=== PATIENT | female | born 1985 | race African-American/Black ===

== ENCOUNTER 2016-03-12 12:38 | Emergency (ER) | payer MEDICAID, OTHER ==
[~2016-03-12 12:38] MED LIST: CHLO.12%30 SSP; PREN0.01 PO
[2016-03-12 13:44] LABS: AUTOMATED NEUTROPHIL # 7.4 TH/MM3 (1.8-7.7); BASOPHIL # 0.1 TH/MM3 (0-0.2); BASOPHIL % 1.4 % (0.0-2.0); EOSINOPHIL # 0.3 TH/MM3 (0-0.4); EOSINOPHIL % 2.4 % (0.0-4.0); HEMO FLAGS DIFF FINAL; LYMPH % 15.6 % (9.0-44.0); LYMPHOCYTE # 1.6 TH/MM3 (1.0-4.8); MEAN CELL VOLUME 88.9 FL (80.0-100.0); MEAN CORPUSCULAR HEMOGLOBIN 31.2 PG (27.0-34.0); MEAN CORPUSCULAR HGB CONC 35.1 % (32.0-36.0); NEUT % 71.6 % (16.0-70.0); PLATELET COUNT 234 TH/MM3 (150-450); RED CELL DISTRIBUTION WIDTH 13.4 % (11.6-17.2); WHITE BLOOD COUNT 10.3 TH/MM3 (4.0-11.0)
[2016-03-12 13:45] VITALS: RESP 18
[2016-03-12 13:56] LABS: BACTERIA, URINE MANY /hpf; BLOOD, URINE NEG (NEG); COMMENT (UR) CULTURE INDICATED; CULTURE IF INDICATED CULTURE INDICATED; GLUCOSE,URINE NEG (NEG); KETONE, URINE NEG (NEG); MUCUS URINE FEW /lpf (OCC); NITRITE,URINE NEG (NEG); SQUAMOUS EPITHELIAL CELL URINE 50 /hpf (0-5); TRANSITIONAL EPI CELLS, URINE 1 /hpf; URINE COLOR YELLOW (YELLW/STRAW)
[2016-03-12 13:57] LABS: ALT (GPT) 19 U/L (10-53); ANION GAP 6 MEQ/L (5-15); AST (GOT) 9 U/L (15-37); BICARBONATE 23.7 MEQ/L (21.0-32.0); BLOOD UREA NITROGEN 5 MG/DL (7-18); CHLORIDE 112 MEQ/L (98-107); GLOMERULAR FILTRATION RATE 230 ML/MIN (>89); POTASSIUM 3.8 MEQ/L (3.5-5.1); SODIUM (NA) 142 MEQ/L (136-145); URIC ACID 2.9 MG/DL (2.6-6.0)
[2016-03-12 13:59] LABS: ALKALINE PHOSPHATASE 89 U/L (45-117); TOTAL BILIRUBIN ADULT 0.1 MG/DL (0.2-1.0)
[2016-03-12 14:01] VITALS: BP 110/71; PULSE 79
[2016-03-12 14:04] VITALS: RESP 18
[2016-03-12 14:12] LABS: AMPHETAMINE, URINE NEG (NEG); BARBITURATES, URINE NEG (NEG); COCAINE, URINE NEG (NEG)
[2016-03-12] MEDS ORDERED: SODIUM CHLOR 0.9% 1000 ML INJ 1,000 ML IV ONE (14:15)
[2016-03-12] MEDS ORDERED: cefTRIAXone INJ 2,000 MG in SODIUM CHLORIDE 0.9% INJ 100 ML IV ONE (14:15)
--- NOTE | 2016-03-12 14:17 | PD ---
HPI Chief Complaint Headaches, abdominal pain Date Seen: Mar 12, 2016 Time Seen: 13:50 Travel History International Travel<30 Days: No Contact w/Intl Traveler<30Days: No Known Affected Area: No History of Present Illness HPI 30-year-old 012 at 31 weeks and 5 days of gestation, EDC 05/09/16, patient presents to labor and delivery complaining of headaches, vaginal discharge and abdominal pain patient has no care at this point. She denies cramping, contractions, leakage of fluids, vaginal bleeding. She reports presence of movements. Amnisure test is negative. Patient has no care and is unassigned. course is significant for chronic hypertension, patient denies blurry vision, visual disturbances and epigastric pain. Para: 2 : 4 Miscarriage: 1 : 0 History Past Medical History Narrative Medical Chronic hypertension Obstetric History Obstetric History Spontaneous vaginal delivery 2, spontaneous times one. Past Surgical History Narrative Surgical Dilatation and curettage due to spontaneous Family History Narrative Family History Unremarkable Social History Alcohol Use: No Tobacco Use: Yes (patient smokes couple of cigarettes a day) Substance Abuse: No Allergies-Medications (Allergen,Severity, Reaction): Coded Allergies: No Known Allergies (Verified , 03/12/16) Home Meds Discontinued Scripts Peridex Oral R0.12 % 0.12 % Sol15 Ml SSP BID 14 Days Prov:Cindy Torres 10/06/15 Vitamins 1 Tab PO DAILY #30 TAB Prov:Varsha Levy MD 09/13/15 Review of Systems Except as stated in HPI: all other systems reviewed are Neg HENT: Headaches Cardiovascular: Other (hypertension) Gastrointestinal: Abdominal Pain Genitourinary: Frequency, Dysuria Physical Exam Narrative GENERAL: Well-nourished, well-developed patient. SKIN: Warm and dry. HEAD: Normocephalic and atraumatic. EYES: No scleral icterus. No injection or drainage. ENT: No nasal drainage noted. Mucous membranes pink. Airway patent. NECK: Supple, trachea midline. No JVD. CARDIOVASCULAR: Regular rate and rhythm without murmurs, gallops, or rubs. RESPIRATORY: Breath sounds equal bilaterally. No accessory muscle use. BREASTS: Bilateral exam showed no masses , no retractions, no nipple discharge. ABDOMEN/GI: Abdomen soft, gravid, non-tender, bowel sounds present, no rebound, no guarding Gravid to 32 weeks size Fundal Height: 32 cm GENITOURINARY: External Genitalia: intact and normal in appearance BUS glands: Normal Cervix: Close, long, posterior Dilatation: Close Effacement: 20% Station: -3 Presentation: Cephalic Membranes: Intact Uterine Contractions: None FHT's: Category: one Baseline: 130s Reactive: Yes Variability: Moderate Decels: None EXTREMITIES: No cyanosis or edema. BACK: Nontender without obvious deformity. No CVA tenderness. NEUROLOGICAL: Awake and alert. Motor and sensory grossly within normal limits. Five out of 5 muscle strength in all muscle groups. Normal speech. Data Data Vital Signs Reviewed: Yes Orders Vital Signs (Adult) [id number] AWAKE (03/12/16 13:21) ^ Heart (03/12/16 13:21) Activity Oob Ad Nessa (03/12/16 13:21) Complete Blood Count With Diff (03/12/16 13:21) Uric Acid (03/12/16 13:21) Urinalysis - C+S If Indicated (03/12/16 13:21) Ob/Psych Drug Screen, Urine (03/12/16 13:21) Comprehensive Metabolic Panel (03/12/16 13:21) Protein Creat Ratio, Random Ur (03/12/16 13:21) Rubella Immune Status (03/12/16 13:24) Hepatitis Profile (03/12/16 13:24) Rapid Plasma Regin (Rpr) W Ttr (03/12/16 13:24) Type And Screen (03/12/16 13:24) Special Serology (03/12/16 13:24) Us Ob Pelvis >14 Wks Fetus (03/12/16 ) Urine Culture (03/12/16 12:50) Sodium Chlor 0.9% 1000 Ml Inj (Ns 1000 M (03/12/16 14:15) Ceftriaxone Inj (Rocephin Inj) (03/12/16 14:15) Labs Laboratory Tests Test 03/12/16 03/12/16 12:50 13:25 Urine Color YELLOW Urine Turbidity HAZY Urine pH 7.0 Urine Specific [place] 1.015 Urine Protein TRACE Urine Glucose (UA) NEG Urine Ketones NEG Urine Occult Blood NEG Urine Nitrite NEG Urine Bilirubin NEG Urine Urobilinogen LESS THAN 2.0 Urine Leukocyte Esterase LARGE Urine RBC 26 Urine WBC 69 Urine Squamous Epithelial 50 Cells Urine Transitional Epithelial 1 Cells Urine Bacteria MANY Urine Mucus FEW Microscopic Urinalysis Comment CULTURE INDICATED White Blood Count 10.3 Red Blood Count 3.60 Hemoglobin 11.2 Hematocrit 32.0 Mean Corpuscular Volume 88.9 Mean Corpuscular Hemoglobin 31.2 Mean Corpuscular Hemoglobin 35.1 Concent Red Cell Distribution Width 13.4 Platelet Count 234 Mean Platelet Volume 7.8 Neutrophils (%) (Auto) 71.6 Lymphocytes (%) (Auto) 15.6 Monocytes (%) (Auto) 9.0 Eosinophils (%) (Auto) 2.4 Basophils (%) (Auto) 1.4 Neutrophils # (Auto) 7.4 Lymphocytes # (Auto) 1.6 Monocytes # (Auto) 0.9 Eosinophils # (Auto) 0.3 Basophils # (Auto) 0.1 CBC Comment DIFF FINAL Differential Comment Sodium Level 142 Potassium Level 3.8 Chloride Level 112 Carbon Dioxide Level 23.7 Anion Gap 6 Blood Urea Nitrogen 5 Creatinine 0.39 Estimat Glomerular Filtration 230 Rate Random Glucose 81 Uric Acid 2.9 Calcium Level 8.2 Total Bilirubin 0.1 Aspartate Amino Transf 9 (AST/SGOT) Alanine Aminotransferase 19 (ALT/SGPT) Alkaline Phosphatase 89 Total Protein 6.1 Albumin 2.5 Date/Time Procedure Status Source Growth 03/12/16 12:50 Urine Culture Received Urine Clean Catch Pending MDM Medical Record Reviewed: Yes Diagnosis Diagnosis: Primary Impression: 31 weeks gestation of Additional Impressions: Chronic hypertension affecting Urinary tract infection affecting care of mother in third trimester, antepartum Disposition: 01 DISCHARGE HOME Condition: Stable Patient Instructions: Abdominal Pain in (ED), General Instructions, Urinary Tract Infection in (ED) Additional Instructions: Patient is treated with ceftriaxone 2 g intravenous times one dose UTI, patient is to follow with Dr. Suarez's office, Dr. Suarez seen the patient in OB ED. Patient underwent OB diagnostic ultrasound today. blood work is collected. Preeclamptic labs is normal. Patient is instructed to return to labor and delivery if increase symptoms, cramping, contractions, leakage of fluids, vaginal bleeding, or decreased movement. Drink plenty of fluids. Monitor kick counts. Keep office appointment with Dr. Suarez's office as scheduled. Jimenez Baker MD Mar 12, 2016 14:17
[2016-03-12 15:25] VITALS: BP 144/93; PULSE 89
[2016-03-12 15:30] VITALS: RESP 18
[2016-03-17 12:20] LABS: BATH SALTS (MDPV) UR NEG (NEG); ECSTASY (MDMA) UR NEG (NEG); HEROIN (6-ACETYLMORPHINE) UR NEG (NEG); K2 SPICE UR NEG (NEG); OBMETHADONE UR NEG (NEG); PHENCYCLIDINE URINE NEG (NEG)
[2016-03-17 12:21] LABS: OXYCODONE (PERCODAN) NEG (NEG)
== END 2016-03-12 16:34 | disposition home or self-care (01) ==
LOC: HOBED 12:38
DX: O10.919 Unspecified pre-existing hypertension complicating pregnancy, unspecified trimester (principal); O23.43 Unspecified infection of urinary tract in pregnancy, third trimester; O99.333 Smoking (tobacco) complicating pregnancy, third trimester; Z3A.31 31 weeks gestation of pregnancy
CPT/HCPCS: 36415; 76805; 80053; 80307; 81001; 82570; 84112; 84156; 84550; 85025; 86850; 86900; 86901; 87086; 96361; 96374; 99284; G0481; J0696; J7030

== ENCOUNTER 2016-04-04 09:51 | Emergency (ER) | payer MEDICAID ==
[2016-04-04 10:05] VITALS: TEMP 98.2
[2016-04-04 10:06] VITALS: BP 143/97; PULSE 116
--- NOTE | 2016-04-04 10:14 | PD ---
HPI Chief Complaint possible leakage of fluid Date Seen: Apr 04, 2016 Travel History International Travel<30 Days: No Contact w/Intl Traveler<30Days: No History of Present Illness HPI 30 yo @ 34wd with MIKAYLA 05-10-2016 by [id number] US on September 13, 2015 and c/w Growth US @ 31 weeks at [facility]. Limited care with [facility]. Patient with hx of CHTN. Patient presents with c/o possible leakage of fluid last evening. No UC, VB. + FM. History Past Medical History Narrative Medical CHTN Obesity Obstetric History Obstetric History x 2 SAB x 1 Past Surgical History Narrative Surgical D&C for MAB Social History Alcohol Use: No Tobacco Use: No Substance Abuse: No Allergies-Medications (Allergen,Severity, Reaction): Coded Allergies: No Known Allergies (Verified , 03/12/16) Review of Systems General / Constitutional: No: Fever, Chills Eyes: No: Blurred Vision, Visual changes HENT: No: Headaches, Lightheadedness Cardiovascular: No: Chest Pain or Discomfort, Palpitations Respiratory: No: Cough, Short of Breath Gastrointestinal: No: Nausea, Vomiting, Diarrhea, Abdominal Pain Genitourinary: Discharge (clear), No: Urgency, Frequency, Dysuria, Vaginal Bleeding Musculoskeletal: No: Limited ROM, Weakness Skin: No Rash, No Itching Neurologic: No: Syncope, Focal Abnormalities Physical Exam Narrative GENERAL: Well-nourished, well-developed patient. SKIN: Warm and dry. HEAD: Normocephalic and atraumatic. EYES: No scleral icterus. No injection or drainage. ENT: No nasal drainage noted. Mucous membranes pink. Airway patent. NECK: trachea midline. No JVD. CARDIOVASCULAR: Regular rate RESPIRATORY: No accessory muscle use. ABDOMEN/GI: Abdomen soft, non-tender, no rebound, no guarding Gravid, NT GENITOURINARY: External Genitalia: intact and normal in appearance BUS glands: [-] AmniSure NEG SVE 1/thick/-3 unchanged FHT's: Category: I Baseline: 130 Reactive: +accelerations 150s Variability: mod EXTREMITIES: No cyanosis or edema. BACK: Nontender without obvious deformity. Normal ROM NEUROLOGICAL: Awake and alert. Motor and sensory grossly within normal limits. . Normal speech. Data Data Vital Signs Reviewed: Yes Orders Vital Signs (Adult) .ON ADMISSION (04/04/16 10:09) ^ Labor Status (04/04/16 10:09) Urinalysis - C+S If Indicated (04/04/16 10:09) ^ Non Stress Test (04/04/16 10:09) Pamg-1 Test .ONCE (04/04/16 10:09) Labs Vital Signs Date Time Temp Pulse Resp B/P Pulse Ox O2 Delivery O2 Flow Rate FiO2 04/04/16 10:15 106 136/88 04/04/16 10:06 116 143/97 04/04/16 10:05 98.2 MDM Medical Record Reviewed: Yes (EMR) Narrative Course / MDM 34 weeks CHTN stable without medication, asymptomatic Had normal growth US last month, reviewed Amnisure NEG No urinary symptoms No s/s PTL or regular UC. No cervical change. CAT I FHT Plan D/c home Reviewed with patient importance of f/u with [facility] this week. Discussed CHTN, and her need for regular obstetrical care, monitoring and possible IOL when appropriate. These will be done through her OB office. Patient states she understands and agrees with plan of care. Diagnosis Diagnosis: Primary Impression: False labor before 37 completed weeks of gestation during in third trimester, antepartum Additional Impressions: Limited care in third trimester Chronic hypertension during , antepartum 34 weeks gestation of Encounter for suspected premature rupture of amniotic membranes, with rupture of membranes not found Margarita Duenas MD Apr 04, 2016 10:14
[2016-04-04 10:15] VITALS: BP 136/88; PULSE 106
== END 2016-04-04 10:47 | disposition home or self-care (01) ==
LOC: HOBED 09:51
DX: O47.1 False labor at or after 37 completed weeks of gestation (principal); O10.93 Unspecified pre-existing hypertension complicating the puerperium; Z3A.34 34 weeks gestation of pregnancy
CPT/HCPCS: 59025; 84112

== ENCOUNTER 2016-04-23 06:02 | Inpatient (IN) | payer MEDICAID ==
[2016-04-23] VITALS (71 sets, daily range): BP systolic 98–178; BP diastolic 58–143; PULSE 74–108; RESP 17–20; TEMP 97.5–98.3
[2016-04-23 07:31] LABS: MEAN CELL VOLUME 87.8 FL (80.0-100.0); MEAN CORPUSCULAR HEMOGLOBIN 30.1 PG (27.0-34.0); MEAN CORPUSCULAR HGB CONC 34.3 % (32.0-36.0); PLATELET COUNT 237 TH/MM3 (150-450); RED BLOOD COUNT 3.65 MIL/MM3 (4.00-5.30); RED CELL DISTRIBUTION WIDTH 14.2 % (11.6-17.2); REVIEW FLAG FINAL; WHITE BLOOD COUNT 11.2 TH/MM3 (4.0-11.0)
[2016-04-23 07:40] LABS: BACTERIA, URINE MANY /hpf; BLOOD, URINE TRACE (NEG); COMMENT (UR) CULTURE INDICATED; CULTURE IF INDICATED CULTURE INDICATED; GLUCOSE,URINE NEG (NEG); KETONE, URINE 150 mg/dL (NEG); MUCUS URINE MANY /lpf (OCC); NITRITE,URINE NEG (NEG); PH, URINE 6.5 (5.0-8.5); SQUAMOUS EPITHELIAL CELL URINE 186 /hpf (0-5); URINE COLOR YELLOW (YELLW/STRAW)
[2016-04-23 07:47] LABS: ANION GAP 8 MEQ/L (5-15); AST (GOT) 10 U/L (15-37); BICARBONATE 22.8 MEQ/L (21.0-32.0); BLOOD UREA NITROGEN 6 MG/DL (7-18); CHLORIDE 108 MEQ/L (98-107); GLOMERULAR FILTRATION RATE 172 ML/MIN (>89); POTASSIUM 3.3 MEQ/L (3.5-5.1); SODIUM (NA) 139 MEQ/L (136-145); URIC ACID 3.8 MG/DL (2.6-6.0)
[2016-04-23 07:50] LABS: ALKALINE PHOSPHATASE 147 U/L (45-117); ALT (GPT) 16 U/L (10-53); TOTAL BILIRUBIN ADULT 0.3 MG/DL (0.2-1.0)
[2016-04-23] MEDS ORDERED: MAGNESIUM SULFATE 40 GM PREMIX 1,000 ML IV SCH (07:52)
[2016-04-23] MEDS ORDERED: NIFEdipine 10 MG CAP PO PRN ×3 (08:00→08:45)
[2016-04-23] MEDS ORDERED: SODIUM CHLORIDE 0.9% FLUSH 5 ML FLUSH IV PRN (08:00)
[2016-04-23] MEDS ORDERED: CALCIUM GLUCONATE 10% 1 GM/10 ML VIAL IV PUSH PRN (08:00)
[2016-04-23] MEDS ORDERED: MAGNESIUM SULFATE 4 GM PREMIX 100 ML IV ONE (08:00)
[2016-04-23] MEDS ORDERED: OXYTOCIN 30 UNITS-500ML PREMIX 500 ML IV SCH (08:15)
--- NOTE | 2016-04-23 08:26 | HHI.HP ---
HPI Chief Complaint contraction pain has history of high blood pressure and she"does not want to take blood pressure medicine" Date Seen: Apr 23, 2016 Travel History International Travel<30 Days: No Contact w/Intl Traveler<30Days: No Known Affected Area: No History of Present Illness HPI Is a 31-year-old black female A1 at 37-1/2 weeks presents with a contraction pain no bleeding or rupture the membranes she has a history of chronic hypertension and she is not compliant with her medication she refuses to take her blood pressure medicine she is also noncompliant with care she hasn't gone to the doctor many times with this and we have a visit here 34 weeks she has an ultrasound over done it 6 weeks the dates her , blood pressure today is 165/105 and 168/125 Para: 2 : 4 History Past Medical History Narrative Medical Hypertension at least 1 year on medications that she does not take or f ill the prescriptions Obstetric History Obstetric History 2 vaginal deliveries and one early loss Social History Alcohol Use: No Tobacco Use: No Substance Abuse: No Allergies-Medications (Allergen,Severity, Reaction): Coded Allergies: No Known Allergies (Verified , 04/04/16) Review of Systems General / Constitutional: No: Fever, Weight Gain, Chills, Other Eyes: No: Diploplia, Blurred Vision, Visual changes, Pain, Photophobia HENT: No: Headaches, Vertigo, Lightheadedness Cardiovascular: No: Irregular Rhythm, Chest Pain or Discomfort, Palpitations, Tachycardia, Syncope, Varicosities, Edema, Cyanosis Respiratory: No: Cough, Short of Breath, Other Gastrointestinal: Abdominal Pain, No: Nausea, Vomiting, Diarrhea Genitourinary: No: Decreased Urinary Output, Oliguria Musculoskeletal: No: Limited ROM, Weakness, Cramping, Edema, Pain Skin: No Rash, No Itching, No Dryness, No Lumps, No Change in Pigmentation, No Change in Nails, No Alopecia, No Lesions Neurologic: No: Weakness, Dizziness, Syncope, Focal Abnormalities, Coordination Problem, Headache, Slurred Speech, Seizures Psychiatric: No: Depression, Suicidal Ideations, Homicidal Ideation Endocrine: No: Heat Intolerance, Cold Intolerance, Polydipsia, Polyuria, Other Physical Exam Vital Signs Date Time Temp Pulse Resp B/P Pulse Ox O2 Delivery O2 Flow Rate FiO2 04/23/16 07:32 93 138/87 04/23/16 07:17 94 04/23/16 07:08 18 04/23/16 07:02 99 139/94 Narrative GENERAL: Well-nourished, well-developed patient. SKIN: Warm and dry. HEAD: Normocephalic and atraumatic. EYES: No scleral icterus. No injection or drainage. ENT: No nasal drainage noted. Mucous membranes pink. Airway patent. NECK: Supple, trachea midline. No JVD. CARDIOVASCULAR: Regular rate and rhythm without murmurs, gallops, or rubs. RESPIRATORY: Breath sounds equal bilaterally. No accessory muscle use. BREASTS: Bilateral exam showed no masses , no retractions, no nipple discharge. ABDOMEN/GI: Abdomen soft, non-tender, bowel sounds present, no rebound, no guarding Gravid to [37-] weeks size Fundal Height: [37-] GENITOURINARY: External Genitalia: intact and normal in appearance BUS glands: [-] Cervix: [-] Dilatation: [3-] Effacement: [50-] Station: [-3] Presentation: [-vtx] Membranes: [intact ] Uterine Contractions: [irreg-] FHT's: Category: [1-] Baseline: [133-] Reactive: [yes-] Variability: [mod-] Decels: [none-] EXTREMITIES: No cyanosis or edema. BACK: Nontender without obvious deformity. No CVA tenderness. NEUROLOGICAL: Awake and alert. Motor and sensory grossly within normal limits. Five out of 5 muscle strength in all muscle groups. Normal speech. Data Data Orders Vital Signs (Adult) .ON ADMISSION (04/23/16 06:43) ^ Labor Status (04/23/16 06:43) Urinalysis - C+S If Indicated (04/23/16 06:43) Cbc No Diff, Includes Plts (04/23/16 06:43) Comprehensive Metabolic Panel (04/23/16 06:43) Uric Acid (04/23/16 06:43) Type And Screen (04/23/16 06:43) Ob/Psych Drug Screen, Urine (04/23/16 06:43) Admit To Inpatient (04/23/16 ) Vital Signs (Adult) Q5MX4,Q15MX4,Q30MX2,Q1H (04/23/16 07:52) Activity Bed Rest (04/23/16 07:52) Intake + Output Q1H (04/23/16 07:52) ^ Notify Parameters (04/23/16 07:52) ^ Heart CONTINUOUS (04/23/16 07:52) Urinary Catheter Management MIGUEL.Q8H (04/23/16 07:52) ^ Check Deep Tendon Reflexes Q1H (04/23/16 07:52) Diet Npo (04/23/16 Breakfast) Lactated Ringer's 1000 Ml Inj (Lr 1000 M (04/23/16 07:52) Sodium Chloride 0.9% Flush (Ns Flush) (04/23/16 08:00) Sodium Chloride 0.9% Flush (Ns Flush) (04/23/16 09:00) Magnesium Sulfate 40 Gm Premix (Magnesiu (04/23/16 07:52) Nifedipine (Procardia) (04/23/16 08:00) Nifedipine (Procardia) (04/23/16 08:15) Nifedipine (Procardia) (04/23/16 08:45) Labetalol Inj (Trandate Inj) (04/23/16 09:00) Calcium Gluconate Inj (Calcium Gluconate (04/23/16 08:00) Magnesium Sulfate 4 Gm Premix (Magnesium (04/23/16 08:00) Plow Mechanic / Telemetry MIGUEL.Q8H (04/23/16 07:52) Ob (2e) Additional Admit Info (04/23/16 07:56) Urine Culture (04/23/16 07:00) ^ Non Stress Test (04/23/16 08:10) Response To Medication .Post New Med Administration, Reaction (04/23/16 08:10) ^ Discontinue Medication (04/23/16 08:10) Oxytocin 30 Units-500ml Premix (Pitocin (04/23/16 08:15) Cefazolin Inj (Ancef Inj) (04/23/16 08:15) No Care Spec Serology (04/23/16 08:14) Group B Strep Pcr (Rapid) (04/23/16 08:14) Labs Laboratory Tests Test 04/23/16 07:00 White Blood Count 11.2 Red Blood Count 3.65 Hemoglobin 11.0 Hematocrit 32.0 Mean Corpuscular Volume 87.8 Mean Corpuscular Hemoglobin 30.1 Mean Corpuscular Hemoglobin 34.3 Concent Red Cell Distribution Width 14.2 Platelet Count 237 Mean Platelet Volume 7.8 Urine Color YELLOW Urine Turbidity CLOUDY Urine pH 6.5 Urine Specific [place] 1.025 Urine Protein 100 Urine Glucose (UA) NEG Urine Ketones 150 Urine Occult Blood TRACE Urine Nitrite NEG Urine Bilirubin NEG Urine Urobilinogen 2.0 Urine Leukocyte Esterase LARGE Urine RBC 110 Urine WBC 162 Urine WBC Clumps OCC Urine Squamous Epithelial 186 Cells Urine Bacteria MANY Urine Mucus MANY Microscopic Urinalysis Comment CULTURE INDICATED Sodium Level 139 Potassium Level 3.3 Chloride Level 108 Carbon Dioxide Level 22.8 Anion Gap 8 Blood Urea Nitrogen 6 Creatinine 0.50 Estimat Glomerular Filtration 172 Rate Random Glucose 73 Uric Acid 3.8 Calcium Level 8.4 Total Bilirubin 0.3 Aspartate Amino Transf 10 (AST/SGOT) Alanine Aminotransferase 16 (ALT/SGPT) Alkaline Phosphatase 147 Total Protein 6.7 Albumin 2.7 Blood Type O POSITIVE Antibody Screen NEGATIVE Date/Time Procedure Status Source Growth 04/23/16 07:00 Urine Culture Received Urine Clean Catch Pending Assessment/Plan Assessment and Plan Patient is 31-year-old black female A1 at 37 weeks and 4 days by a 6 week ultrasound who presents complaining of contraction pain. Denies bleeding or ruptured membranes. Baby is active heart rate tracing is reactive and she is henny irregularly. has a history of chronic hypertension and noncompliance with medication for same her blood pressures here 160s over 100s, urinalysis shows 2+ proteinuria as well as UTI, she is 1+ edema exam is 3 cm 50% -3 with vertex presentation, hypertensive lab is within normal limits otherwise, normal liver functions and platelets Impression is chronic hypertension at 37-38 weeks with superimposed preeclampsia Plan is admission for delivery with rupture membranes and on labor augmentation when necessary anticipate vaginal delivery Rai Jones II, MD Apr 23, 2016 08:26
[2016-04-23] MEDS ORDERED: ceFAZolin 2 GM PREMIX 50 ML IV ONE (08:30)
[2016-04-23] MEDS ORDERED: LABETALOL HCL 100 MG/20 ML VIAL IV PUSH PRN (09:00)
[2016-04-23] MEDS ORDERED: SODIUM CHLORIDE 0.9% FLUSH 5 ML FLUSH IV SCH (09:00)
--- NOTE | 2016-04-23 09:18 | PD.LABORPN ---
Subjective Subjective doing well , FHr reactive , CTXs q 6-7 min AROM clear IUPC FSE inserted cx /-3/vtx begin pit sep Objective Vital Signs Vital Signs Date Time Temp Pulse Resp B/P Pulse Ox O2 Delivery O2 Flow Rate FiO2 04/23/16 08:51 89 124/79 04/23/16 07:32 93 138/87 04/23/16 07:17 94 04/23/16 07:08 18 04/23/16 07:02 99 139/94 Objective Pelvic Exam: Cervix: [-] Dilatation: [3-] Effacement: [50-] Station: [-3] Presentation: [vtx-] Membranes: [ ruptured just now AROM] Uterine Contractions: [-q 6 min] FHT's: Category: [1-] Baseline: [-133] Reactive: [yes-] Variability: [mod-] Decels: [-none] Assessment/Plan Assessment and Plan multip , Ch HTN uncontrolled with superimposed preeclampsia [ 2 + protein] remaining lab WNL admit , Mag So4 IV , pitocin prn Rai Jones II, MD Apr 23, 2016 09:18
[2016-04-23] MEDS: LACTATED RINGER'S 1000 ML INJ 1,000 ML IV SCH (09:22)
[2016-04-23] MEDS ORDERED: LACTATED RINGER'S 1000 ML INJ 1,000 ML IV SCH (09:29)
[2016-04-23] MEDS ORDERED: LACTATED RINGER'S 1000 ML INJ 1,000 ML IV PRN (09:29)
[2016-04-23] MEDS ORDERED: fentaNYL 2MCG-BUPIV 0.125% INJ 100 ML ONE (09:50)
--- NOTE | 2016-04-23 11:47 | PD.LABORPN ---
Subjective Subjective 31 year old at 37/4 weeks gestation admitted for induction of labor for preeclampsia. Currently on magnesium sulfate. Has 2+ proteinuria with 1+ edema. Pre-eclamptic labs unremarkable. Currently doing well, no headache, blurry vision, epigastric pain. Having pain with contractions. Had AROM with clear fluid. scalp electrodes are in place, and IUPC inserted. BP's currently 120's/70's. (Bk Bedolla MD R2) Objective Vital Signs Vital Signs Date Time Temp Pulse Resp B/P Pulse Ox O2 Delivery O2 Flow Rate FiO2 04/23/16 11:16 80 135/87 04/23/16 11:08 88 148/99 04/23/16 11:01 93 158/143 04/23/16 11:00 102 04/23/16 10:46 82 113/75 04/23/16 10:31 88 145/94 04/23/16 10:30 89 04/23/16 10:25 86 04/23/16 10:16 87 135/82 04/23/16 10:15 87 04/23/16 10:01 86 136/90 04/23/16 10:00 87 04/23/16 09:46 91 149/99 04/23/16 09:45 89 04/23/16 09:35 90 04/23/16 09:31 88 20 138/88 04/23/16 09:30 87 18 04/23/16 09:28 86 137/89 04/23/16 09:25 83 04/23/16 09:24 88 146/105 04/23/16 08:51 89 124/79 04/23/16 07:32 93 138/87 04/23/16 07:17 94 04/23/16 07:08 18 04/23/16 07:02 99 139/94 Objective Pelvic Exam: Cervix: [-] Dilatation: 3 Effacement: 50 Station: -2 Presentation: vertex Membranes: AROM Uterine Contractions: none recently FHT's: Category: 1 Baseline: 130's Reactive: yes Variability: moderate Decels: none (Bk Bedolla MD R2) Assessment/Plan Assessment and Plan 31 year old at 37/4 weeks gestation admitted for induction for preeclampsia - Continue magnesium sulfate. - Continue pitocin, currently at 2 milliunits/min - External monitoring - Monitor labor progress - Monitor DTR's, cardiopulmonary status - Monitor blood pressures - Continue cefazolin for UTI - GBS negative - Follow up labs (Bk Bedolla MD R2) Attestation Agree with above (Callie Mckeon MD) Bk Bdeolla MD R2 Apr 23, 2016 11:47 Callie Mckeon MD Apr 23, 2016 16:39
[2016-04-23 11:54] LABS: AMPHETAMINE, URINE NEG (NEG); BARBITURATES, URINE NEG (NEG); COCAINE, URINE NEG (NEG)
[2016-04-23] MEDS ORDERED: ePHEDrine/NS 25 MG/5 ML SYR IV PRN (13:45)
[2016-04-23] MEDS ORDERED: DO NOT ADMINISTER ANTICOAGULANTS XX PRN (14:00)
[2016-04-23] MEDS ORDERED: fentaNYL 2MCG-BUPIV 0.125% 100 ML EPIDURAL SCH (14:00)
[2016-04-23] MEDS ORDERED: NO SYSTEM NARCOTICS XX PRN (14:00)
[2016-04-23] MEDS ORDERED: MEASLES, MUMPS, RUBELLA VACCINE 0.5 ML VIAL SQ ONE (16:00)
[2016-04-23] MEDS ORDERED: DIPHTH/TETANUS/ACEL PERTUSSIS (BOOSTER) 0.5 ML VIAL/PFS IM ONE (16:00)
--- NOTE | 2016-04-23 17:05 | PD.LABORPN ---
Subjective Subjective Patient says she is ready to have the baby. She feels some pelvic pressure. Objective Vital Signs Vital Signs Date Time Temp Pulse Resp B/P Pulse Ox O2 Delivery O2 Flow Rate FiO2 04/23/16 16:31 93 131/82 04/23/16 16:30 98.3 04/23/16 16:17 18 04/23/16 16:01 95 118/73 04/23/16 15:31 90 128/69 04/23/16 15:30 17 04/23/16 15:01 96 111/74 04/23/16 14:30 18 04/23/16 14:06 94 117/75 04/23/16 13:30 19 04/23/16 13:00 98.1 04/23/16 13:00 18 04/23/16 12:42 96 98/81 04/23/16 12:01 83 109/58 04/23/16 11:46 88 121/70 04/23/16 11:31 94 138/86 04/23/16 11:30 89 04/23/16 11:30 17 04/23/16 11:25 91 136/78 04/23/16 11:16 80 135/87 04/23/16 11:08 88 148/99 04/23/16 11:01 93 158/143 04/23/16 11:00 102 04/23/16 11:00 18 04/23/16 11:00 98.3 04/23/16 10:46 82 113/75 04/23/16 10:31 88 145/94 04/23/16 10:30 89 04/23/16 10:25 86 04/23/16 10:16 87 135/82 04/23/16 10:15 87 04/23/16 10:01 86 136/90 04/23/16 10:00 87 04/23/16 09:46 91 149/99 04/23/16 09:45 89 04/23/16 09:35 90 04/23/16 09:31 88 20 138/88 04/23/16 09:30 87 18 04/23/16 09:28 86 137/89 04/23/16 09:25 83 04/23/16 09:24 88 146/105 Objective Pelvic Exam: Cervix: 5/60/-2 Membranes: AROM at 0915 Uterine Contractions: every 4 min FHT's: Category: 1 Baseline: 120 Reactive: y to 150 Variability:mod Decels: none Assessment/Plan Assessment and Plan 31 year old at 37/4 weeks gestation admitted for induction for preeclampsia. She is now 5/70%/-2. Labor is progressing, expect NVSD. Has Epidural and AROM was at approx 9am Intrauterine - Cat 1 tracing - CTX q4min - Continue pitocin, currently at 11 milliunits/min - External monitoring - Monitor labor progress - Follow up labs, so far HIV back and negative Hypertension in - Suspect PreE - Labs not showing evidence of organ dysfx. 100+ protein in urine - BPs 110s-130s/60s-80s at this time on mg - Continue magnesium sulfate. - Monitor blood pressures - BP meds PRN per protocol - Monitor DTR's, cardiopulmonary status UTI - Continue cefazolin for UTI - GBS negative SDW Gianna Almazan Dr., MD R1 Apr 23, 2016 17:05
[2016-04-23] MEDS ORDERED: ACETAMINOPHEN 325 MG TAB PO ONE (19:15)
--- NOTE | 2016-04-23 23:54 | PD.OB.DELI ---
Delivery Date: Apr 23, 2016 Anesthesia: Epidural Episiotomy: None Vaginal Delivery: Normal, Spontaneous Presentation: Occiput anterior, Vertex Nuchal Cord: x1 Delayed cord clamping (45 sec): Yes Infant: Male One Minute : 9 Five Minute : 9 Weight: [id number] Infant Care: Suctioned, Responded to stimulation Placenta: Spontaneous delivery, Intact, 3 vessel cord Laceration: No lacerations Additional Information Delivered by Dr. Bedolla, Assisted by Dr. Cruz, attended by Dr. Mckeon (Bk Bedolla MD R2) Collaborating MD Comments Resident was assisted with this delivery. patient experienced elevated bp on magnesium sulfate 182/108, labetolol 20 IV was given per severe hypertension protocol (Callie Mckeon MD) Bk Bedolla MD R2 Apr 23, 2016 23:54 Callie Mckeon MD Apr 24, 2016 00:51
[2016-04-24] VITALS (43 sets, daily range): BP systolic 128–170; BP diastolic 79–112; PULSE 72–101; RESP 16–20; TEMP 97.5–98.1
[2016-04-24] MEDS ORDERED: ZOLPIDEM TARTRATE 5 MG TAB PO PRN
[2016-04-24] MEDS ORDERED: SODIUM CHLORIDE 0.9% FLUSH 5 ML FLUSH IV PRN
[2016-04-24] MEDS ORDERED: ACETAMINOPHEN 325 MG TAB PO PRN
[2016-04-24] MEDS ORDERED: DOCUSATE SODIUM 50 MG/SENNA 8.6 MG TAB PO PRN
[2016-04-24] MEDS ORDERED: WITCH HAZEL 50%/GLYCERIN 12.5% 40 PAD JAR TOPICAL PRN
[2016-04-24] MEDS ORDERED: ALUMINUM/MAGNESIUM/SIMETH 30 ML CUP PO PRN
[2016-04-24] MEDS ORDERED: ONDANSETRON ODT 4 MG TAB PO PRN
[2016-04-24] MEDS ORDERED: BENZOCAINE 20% TOPICAL SPRAY 60 ML CAN TOPICAL PRN
[2016-04-24] MEDS: IBUPROFEN 600 MG TAB PO PRN ×2 (00:33→06:49)
[2016-04-24] MEDS ORDERED: LABETALOL HCL 100 MG/20 ML VIAL IV PUSH ONE (00:45)
[2016-04-24] MEDS ORDERED: LABETALOL HCL 100 MG/20 ML VIAL ONE (00:45)
[2016-04-24] MEDS ORDERED: MAGNESIUM SULFATE 40 GM PREMIX 1,000 ML ONE (03:52)
--- NOTE | 2016-04-24 08:24 | HHI.OB ---
Subjective Remarks 31 year old PPD 1 after vaginal delivery. Course complicated by preeclampsia. Blood pressures overnight were 140's/80's. No headache, visual changes, epigastric pain, chest pain, or shortness of breath. Has moderate pain in the lower abdomen, feels like cramping. Minimal lochia. Has excellent appetite. Currently on magnesium sulfate for seizure prophylaxis. (Bk Bedolla MD R2) Objective Vitals/I&O Vital Signs Date Time Temp Pulse Resp B/P Pulse Ox O2 Delivery O2 Flow Rate FiO2 04/24/16 05:59 92 16 145/98 04/24/16 04:53 92 145/88 04/24/16 04:53 16 04/24/16 04:02 93 131/82 04/24/16 04:01 18 04/24/16 03:01 100 16 141/82 04/24/16 02:02 90 151/98 04/24/16 02:01 18 04/24/16 01:31 88 153/88 04/24/16 01:31 98.1 16 04/24/16 01:17 89 141/93 04/24/16 01:16 16 04/24/16 01:01 89 147/85 04/24/16 01:00 16 04/24/16 00:49 89 18 159/94 04/24/16 00:34 18 04/24/16 00:32 88 170/103 04/24/16 00:28 87 165/95 04/24/16 00:17 93 158/102 04/24/16 00:04 18 04/24/16 00:03 97 165/106 04/23/16 23:54 178/123 04/23/16 23:54 18 04/23/16 23:54 108 04/23/16 23:03 96 151/98 04/23/16 23:02 97.5 18 04/23/16 22:46 92 143/91 04/23/16 22:45 18 04/23/16 22:27 92 18 04/23/16 22:27 133/101 04/23/16 22:00 18 04/23/16 21:57 105 148/95 04/23/16 21:38 102 130/76 04/23/16 21:37 20 04/23/16 21:22 98 139/85 04/23/16 21:22 18 04/23/16 21:00 98.1 18 04/23/16 21:00 140/83 04/23/16 21:00 93 04/23/16 20:41 18 04/23/16 20:41 93 153/95 04/23/16 20:24 86 18 149/90 04/23/16 20:04 84 04/23/16 20:04 146/95 04/23/16 20:03 18 04/23/16 19:46 96 137/66 04/23/16 19:32 97 18 127/82 04/23/16 19:13 97.7 18 04/23/16 19:01 94 128/80 04/23/16 18:31 99 129/78 04/23/16 18:30 19 04/23/16 18:15 96 04/23/16 18:10 74 04/23/16 18:01 96 111/91 04/23/16 18:00 20 04/23/16 17:31 97 111/70 04/23/16 17:27 97.9 04/23/16 17:01 94 136/75 04/23/16 16:31 93 131/82 04/23/16 16:30 98.3 04/23/16 16:17 18 04/23/16 16:01 95 118/73 04/23/16 15:31 90 128/69 04/23/16 15:30 17 04/23/16 15:01 96 111/74 04/23/16 14:30 18 04/23/16 14:06 94 117/75 04/23/16 13:30 19 04/23/16 13:00 98.1 04/23/16 13:00 18 04/23/16 12:42 96 98/81 04/23/16 12:01 83 109/58 04/23/16 11:46 88 121/70 04/23/16 11:31 94 138/86 04/23/16 11:30 89 04/23/16 11:30 17 04/23/16 11:25 91 136/78 04/23/16 11:16 80 135/87 04/23/16 11:08 88 148/99 04/23/16 11:01 93 158/143 04/23/16 11:00 102 04/23/16 11:00 18 04/23/16 11:00 98.3 04/23/16 10:46 82 113/75 04/23/16 10:31 88 145/94 04/23/16 10:30 89 04/23/16 10:25 86 04/23/16 10:16 87 135/82 04/23/16 10:15 87 04/23/16 10:01 86 136/90 04/23/16 10:00 87 04/23/16 09:46 91 149/99 04/23/16 09:45 89 04/23/16 09:35 90 04/23/16 09:31 88 20 138/88 04/23/16 09:30 87 18 04/23/16 09:28 86 137/89 04/23/16 09:25 83 04/23/16 09:24 88 146/105 04/23/16 08:51 89 124/79 Objective Remarks GENERAL: Well-nourished, well-developed patient. CARDIOVASCULAR: Regular rate and rhythm without murmurs, gallops, or rubs. RESPIRATORY: Breath sounds equal bilaterally. No accessory muscle use. ABDOMEN/GI: Abdomen soft, non-tender. Fundus: Firm, non-tender at umbilicus. GENITOURINARY: Light to moderate bleeding. EXTREMITIES: No cyanosis or edema, non-tender, without signs of DVT. Medications and IVs Current Medications Medications (Trade) Dose Ordered Sig/Terri Route Start Time Stop Time Status Last Admin Calcium Gluconate 1 gm 1 gm UNSCH PRN IV PUSH 04/23/16 08:00 (Ancef Inj/NS Inj) 100 ml @ 200 mls/hr Q8H IV 04/23/16 18:00 04/24/16 02:11 Miscellaneous Information No systemic narcotics to be given except... UNSCH PRN XX 04/23/16 14:00 04/24/16 13:59 Miscellaneous Information DO NOT ADMINISTER ANY ANTICOAGUL... UNSCH PRN XX 04/23/16 14:00 04/24/16 13:59 (NS Flush) 2 ml BID IV 04/24/16 09:00 (NS Flush) 2 ml UNSCH PRN IV 04/24/16 00:00 (Tylenol) 650 mg Q4H PRN PO 04/24/16 00:00 (Motrin) 600 mg Q6H PRN PO 04/24/16 00:00 04/24/16 06:49 (Americaine 20% Top Spr) 1 spray Q4H PRN TOPICAL 04/24/16 00:00 (Tucks Pads) 1 applic QID PRN TOPICAL 04/24/16 00:00 (Clarisa-Colace) 2 tab Q12H PRN PO 04/24/16 00:00 (Ambien) 5 mg HS PRN PO 04/24/16 00:00 (Mag-Al Plus Susp Liq) 15 ml Q8H PRN PO 04/24/16 00:00 (Zofran Odt) 4 mg Q6H PRN PO 04/24/16 00:00 (Bk Bedolla MD R2) Assessment/Plan Assessment and Plan 31 year old PPD 1 after vaginal delivery, course complicated by preeclampsia - Continue magnesium sulfate for 24 hours after delivery - Monitor blood pressures - Monitor deep tendon reflexes, signs of magnesium toxicity - Encourage - Teletype Telegrapher on control options - Monitor lochia - Will need close follow up with OB provider due to preeclampsia. Discussed with Dr. Mckeon (Bk Bedolla MD R2) Collaborating MD Comments Agree with management BP's much improved today (Callie Mckeon MD) Bk Bedolla MD R2 Apr 24, 2016 08:24 Callie Mckeon MD Apr 24, 2016 09:05
[2016-04-24] MEDS ORDERED: SODIUM CHLORIDE 0.9% FLUSH 5 ML FLUSH IV SCH (09:00)
[2016-04-24] MEDS: oxyCODONE/ACETAMINOPHEN 7.5 MG/325 MG TAB PO PRN ×3 (10:07→23:45)
[2016-04-24] MEDS: LACTATED RINGER'S 1000 ML INJ 1,000 ML IV SCH (14:06)
[2016-04-24] MEDS ORDERED: CHLORTHALIDONE/ATENOLOL 25 MG/100 MG TAB PO ONE (16:15)
[2016-04-24] MEDS ORDERED: ATENOLOL/CHLORTHALIDONE 50/25 TAB PO ONE (16:30)
[2016-04-24] MEDS ORDERED: PILL SPLITTER OTHER PRN (17:00)
[2016-04-24] MEDS ORDERED: CHLORTHALIDONE 50 MG TAB PO ONE (17:00)
[2016-04-24] MEDS ORDERED: ATENOLOL 100 MG TAB PO ONE (17:00)
[2016-04-24] MEDS ORDERED: ATENOLOL/CHLORTHALIDONE 50/25 TAB PO SCH (18:10)
[2016-04-25] VITALS: BP 156/101; PULSE 81; RESP 18; TEMP 98
[2016-04-25] MEDS: IBUPROFEN 600 MG TAB PO PRN (00:26)
[2016-04-25 02:00] VITALS: BP 131/95; PULSE 79; RESP 18
[2016-04-25 08:00] VITALS: BP 142/93; PULSE 70; RESP 16; TEMP 98.4
[2016-04-25] MEDS: oxyCODONE/ACETAMINOPHEN 7.5 MG/325 MG TAB PO PRN ×2 (08:27→11:53)
[2016-04-25] MEDS ORDERED: CEPHALEXIN MONOHYDRATE 500 MG CAP PO SCH (09:00)
--- NOTE | 2016-04-25 09:16 | HHI.OB ---
Subjective Post Day: 2 Remarks day 2 afebrile vital signs stable blood pressure 140/90 on Tenoretic for hypertension Patient feels good has no complaints or problems denies bleeding heavily pain she is tolerating her diet she is ambulating well as normal bowel bladder function She is begun on Tenoretic which is a combination Tenormin and thiazide diuretic for hypertension she was instructed to take this pill once a day and recheck her pressure in a week if still high then take 2 tablets in the morning to once a day dosing. Exam-uterus at the umbilicus and nontender all other findings within normal limits plan to discharge home today on Tenoretic and the Motrin on her vitamins [facility] today can be arranged for follow-up of her blood pressure. I emphasized quite firmly that she needed to take her medication for blood pressure and have her blood pressure checked on a routine basis in all this to be done to prevent hypertensive crisis which she said they' ll with in the past and prevent stroke and or other morbidities Objective Vitals/I&O Vital Signs Date Time Temp Pulse Resp B/P Pulse Ox O2 Delivery O2 Flow Rate FiO2 04/25/16 02:00 79 18 131/95 04/25/16 00:00 81 18 04/25/16 00:00 156/101 04/25/16 00:00 98.0 04/24/16 23:00 73 18 147/97 04/24/16 22:02 72 140/100 04/24/16 22:01 18 04/24/16 21:03 75 151/97 04/24/16 21:02 18 04/24/16 20:04 91 141/99 04/24/16 20:03 18 04/24/16 19:08 95 18 141/89 04/24/16 19:08 98.1 04/24/16 17:03 98 144/88 04/24/16 17:01 101 141/93 04/24/16 16:03 97.5 04/24/16 16:01 92 139/87 04/24/16 16:00 20 04/24/16 15:21 91 128/79 04/24/16 14:01 86 141/90 04/24/16 14:00 20 04/24/16 13:01 96 142/97 04/24/16 12:01 99 144/96 04/24/16 11:36 20 3/11/17 11:31 92 144/89 04/24/16 10:01 81 143/112 04/24/16 09:45 91 155/105 Objective Remarks GENERAL: Well-nourished, well-developed patient. CARDIOVASCULAR: Regular rate and rhythm without murmurs, gallops, or rubs. RESPIRATORY: Breath sounds equal bilaterally. No accessory muscle use. ABDOMEN/GI: Abdomen soft, non-tender. Fundus: Firm, non-tender at umbilicus. GENITOURINARY: Light to moderate bleeding. EXTREMITIES: No cyanosis or edema, non-tender, without signs of DVT. Medications and IVs Current Medications Medications (Trade) Dose Ordered Sig/Terri Route Start Time Stop Time Status Last Admin (Calcium Gluconate Inj) 1 gm UNSCH PRN IV PUSH 04/23/16 08:00 (NS Flush) 2 ml BID IV 04/24/16 09:00 (NS Flush) 2 ml UNSCH PRN IV 04/24/16 00:00 (Tylenol) 650 mg Q4H PRN PO 04/24/16 00:00 (Motrin) 600 mg Q6H PRN PO 04/24/16 00:00 04/25/16 00:26 (Americaine 20% Top Spr) 1 spray Q4H PRN TOPICAL 04/24/16 00:00 (Tucks Pads) 1 applic QID PRN TOPICAL 04/24/16 00:00 (Clarisa-Colace) 2 tab Q12H PRN PO 04/24/16 00:00 (Ambien) 5 mg HS PRN PO 04/24/16 00:00 (Mag-Al Plus Susp Liq) 15 ml Q8H PRN PO 04/24/16 00:00 (Zofran Odt) 4 mg Q6H PRN PO 04/24/16 00:00 (Percocet 7.5-325 Mg) 1 tab Q4H PRN PO 04/24/16 10:00 04/25/16 08:27 (Pill Splitter) 1 ea UNSCH PRN OTHER 04/24/16 17:00 (Tenoretic 50-25 Mg) 1 tab DAILY PO 04/24/16 18:10 04/25/16 08:27 (Keflex) 500 mg TID PO 04/25/16 09:00 04/25/16 08:27 Assessment/Plan Assessment and Plan 31 year old PPD 1 after vaginal delivery, course complicated by preeclampsia superimposed on chronic hypertension Plan to continue oral antihypertensive combination Tenoretic the patient follow- up within 5-7 days for hypertension check this was discussed with patient at length Rai Jones II, MD Apr 25, 2016 09:16
[2016-04-25] MEDS ORDERED: IBUP-232 PO (09:56)
[2016-04-25] MEDS ORDERED: SENN1TAB PO (09:56)
[2016-04-25] MEDS ORDERED: ATEN50TA7 PO (09:57)
--- NOTE | 2016-04-25 09:57 | HHI.DCPOC ---
Discharge Care Plan Diagnosis: (1) Chronic hypertension during , antepartum (2) Vaginal delivery Report Symptoms to Your Doctor -Temperate above 100.5 degrees -Redness, of incision or excessive or foul smelling drainage -Unusual pain or calf pain -Increased vaginal bleeding -Painful or difficulty urinating -Feelings of extreme sadness or anxiety after 2 weeks Goals to Promote Your Health * To prevent worsening of your condition and complications * To maintain your health at the optimal level Directions to Meet Your Goals Take your medications as prescribed Follow your dietary instruction Follow activity as directed Ensure plenty of rest for recovery Drink fluids for hydration Keep your appointments as scheduled Take your immunizations and boosters as scheduled If your symptoms worsen call your PCP, if no PCP go to Urgent Care Center or Emergency Room Smoking is Dangerous to Your Health. Avoid second hand smoke Call the 24-hour crisis hotline for domestic abuse at Jose Tomlinson MD R2 Apr 25, 2016 09:57
[2016-04-28 11:22] LABS: BATH SALTS (MDPV) UR NEG (NEG); ECSTASY (MDMA) UR NEG (NEG); HEROIN (6-ACETYLMORPHINE) UR NEG (NEG); K2 SPICE UR NEG (NEG); OBMETHADONE UR NEG (NEG); OXYCODONE (PERCODAN) NEG (NEG); PHENCYCLIDINE URINE NEG (NEG)
== END 2016-04-25 13:13 | disposition home or self-care (01) | DRG 774 ==
LOC: HOBED 06:02 → H2EB 07:56 → H1EA 04-24 23:50
PROVIDERS: ADMIT Obstetrics & Gynecology Maternal & Fetal Medicine; ATTEND Obstetrics & Gynecology Maternal & Fetal Medicine
PROC: 10E0XZZ Delivery of Products of Conception, External Approach (ICD-10-PCS; principal; 2016-04-23)
PROC: 10907ZC Drainage of Amniotic Fluid, Therapeutic from Products of Conception, Via Natural or Artificial Opening (ICD-10-PCS; 2016-04-23)
PROC: 00HU33Z Insertion of Infusion Device into Spinal Canal, Percutaneous Approach (ICD-10-PCS; 2016-04-23)
PROC: 3E0R3CZ (ICD-10-PCS; 2016-04-23)
DX: O11.4 Pre-existing hypertension with pre-eclampsia, complicating childbirth (principal); O75.3 Other infection during labor; N39.0 Urinary tract infection, site not specified; Z37.0 Single live birth; Z3A.37 37 weeks gestation of pregnancy; O69.81X0 Labor and delivery complicated by cord around neck, without compression, not applicable or unspecified; Z91.14 Patient's other noncompliance with medication regimen; Z91.19 Patient's noncompliance with other medical treatment and regimen
CPT/HCPCS: 80053; 80307; 81001; 84112; 84550; 85027; 86703; 86850; 86900; 86901; 87081; 87086; 87150; 96360; G0481; J0690; J2590; J3010; J3475; J7120